=== PATIENT | female | born 2000 | race Caucasian/White ===

== ENCOUNTER 2023-04-02 11:45 | Emergency (ER) | payer BC ==
[~2023-04-02] VITALS: Ht 170.2 cm; Wt 61.2 kg
[2023-04-02 13:05] VITALS: BP_SYST 101; PULSE 75; RESP 18; TEMP 97.3; O2SAT 98
[2023-04-02 17:21] VITALS: BP_SYST 121; PULSE 74; RESP 17; TEMP 97.3; O2SAT 97
== END 2023-04-02 17:00 | disposition left against medical advice (07) ==
LOC: SED 11:45
DX: J36 Peritonsillar abscess (principal); Z79.899 Other long term (current) drug therapy
CPT/HCPCS: 99281